=== PATIENT | male | born 2005 | race Caucasian/White ===

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

== ENCOUNTER 2024-11-08 15:52 | Outpatient (CLI) | payer BC, SELFPAY ==
--- NOTE | 2024-11-08 15:56 | XR_ITS ---
FINAL REPORT CLINICAL HISTORY: SCOLIOSIS CONCERN FINDINGS: SPINE THORACOLUMBAR STANDING (SCOLIOSIS) There is mild levoscoliosis in the upper thoracic spine measuring 12 degrees. There is minimal levoscoliosis in the lumbar spine measuring 5 degrees. IMPRESSION: Scoliosis as above. Reviewed, Interpreted and Dictated by Abigail Adam MD Transcribed by Florence Platt Authenticated and [facility]
== END 2024-11-08 23:59 | disposition home or self-care (01) ==
LOC: RAD 15:53
PROVIDERS: PCP Internal Medicine Adolescent Medicine; Visit Provider Physician Assistant
DX: M41.84 Other forms of scoliosis, thoracic region (principal); M41.86 Other forms of scoliosis, lumbar region
CPT/HCPCS: 72081

== ENCOUNTER 2024-11-14 10:28 | Outpatient (CLI) | payer BC, SELFPAY ==
--- NOTE | 2024-11-14 | US_ITS ---
FINAL REPORT TECHNIQUE: Real-time grayscale and color ultrasound of the thyroid was performed. CLINICAL HISTORY: MULT. THY NODULES COMPARISON: none FINDINGS: The thyroid gland volumes are 8.4 mL on the right and 8.1 mL on the left. The isthmus measures 5 mm. The thyroid gland is normal in size with a normal echotexture. Nodules: Numerous colloid cysts throughout the posterior lobes bilaterally all measuring 4 mm or less. No solid mass identified. IMPRESSION: Numerous benign colloid cysts without evidence of neoplasm. No further follow-up imaging considered indicated per TI-RADS criteria. Reviewed, Interpreted and Dictated by Abigail Adam MD Transcribed by Saniya Chavira Authenticated and [facility]
== END 2024-11-14 23:59 | disposition home or self-care (01) ==
LOC: RAD 10:31
PROVIDERS: PCP Internal Medicine Adolescent Medicine; Visit Provider Physician Assistant
DX: E04.2 Nontoxic multinodular goiter (principal)
CPT/HCPCS: 76536